=== PATIENT | female | born 1990 | race Caucasian/White ===

== ENCOUNTER 2023-10-10 11:08 | Observation (INO) | payer MEDICARE, SELFPAY ==
[2023-10-09 23:58] VITALS: BP 154/114
[2023-10-10] VITALS (11 sets, daily range): BP systolic 97–126; BP diastolic 58–84; BMI 20.8; BMI 21.4
--- NOTE | 2023-10-10 01:07 | ED.GENMED ---
History of Present Illness
<Thiago Vee PA-C - Last Filed: 10/10/23 15:13>
General
Chief Complaint: Abdominal Pain
Time Seen by Provider: 10/10/23 00:40
Travel History
Have you had any contact with someone who has COVID-19?: No
Do you have any symptoms of coronavirus? Fever > 100 degrees, chills, cough, shortness of breath, sore throat, loss of taste or smell, muscle aches, or headache?: No
History of Present Illness
History of Present Illness:
33-year-old female with history of diverticulitis status post sigmoidectomy and small bowel resection x 2 presents to the emergency department for evaluation of severe lower abdominal pain associated with vomiting and lack of flatus over the past
several hours. She has a history of a small bowel obstruction and states this feels the same. Denies any hematemesis. No fevers or chills.
Underwent sigmoidectomy/SB resection x 2 in mid 2022, subsequent SBO later in 2022.
Past History
<Thiago Vee PA-C - Last Filed: 10/10/23 15:13>
Past History
ED Past Medical History: Psychiatric (Depression, bipolar disorder, panic disorder), Other (Diverticulitis) and Other (Genital herpes)
ED Past Surgical History: None
Social History
Tobacco: Smoker
Alcohol: Occasional
Drug: None
Personal: Single
Living: with family
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
Family History
Family History: Diabetes and Other (Breast cancer)
Review of Systems
<Thiago Vee PA-C - Last Filed: 10/10/23 15:13>
Review of Systems
Allergies reviewed?: Yes
All Other Systems: ROS reviewed and negative except as documented in HPI and ROS
Phy Exam
<Thiago Vee PA-C - Last Filed: 10/10/23 15:13>
Physical Exam
Physical Exam:
GEN: Ill-appearing, visibly in pain
Eyes: PERRLA, EOMs intact, no scleral icterus
HENT: NCAT, oral mucosa moist
Lungs: CTAB, no wheezes, rales, rhonchi, normal chest wall excursion
Cardiac: Mildly tachycardic, regular, no murmurs
Abdomen: S, diffusely tender x 4 quadrants, no rigidity
Neuro: AO x 3
MSK: No gross deformity or ecchymosis.
Skin: No rashes, petechiae. Normal color, no pallor or jaundice.
Psych: Calm, cooperative, proper hygiene
Course
<Thiago Vee PA-C - Last Filed: 10/10/23 15:13>
Orders/Labs/Results
Orders:
Orders
10/10/23 00:51
CT Abd/pel W Iv And Oral Contr Urgent
Comment:
Reason For Exam: lower abd pain, hx of SBO
HYDROmorphone [Dilaudid] 0.5 mg IV NOW STA
Iohexol [Omnipaque] See Protocol PO NOW STA
Test Result ONCE
10/10/23 00:52
Lactated Ringers [Lr] 1,000 ml IV BOLUS
Ondansetron Injectable [Zofran] 4 mg IV NOW STA
10/10/23 01:16
Complete Blood Count/With Diff Urgent
Comprehensive Metabolic Panel Urgent
HCG, Serum Qualitative Screen Urgent
Lactic Acid Urgent
10/10/23 04:38
HYDROmorphone [Dilaudid] 0.5 mg .ROUTE .STK-MED ONE
10/10/23 04:43
HYDROmorphone [Dilaudid] 0.5 mg IV NOW STA
10/10/23 04:44
Ondansetron Injectable [Zofran] 4 mg .ROUTE .STK-MED ONE
10/10/23 04:45
Ondansetron Injectable [Zofran] 4 mg IV NOW STA
10/10/23 Breakfast
NPO
Allow oral meds: Yes
Allow clear liquids: No
NPO with Ice Chips: Yes
10/10/23 06:36
Urinalysis Reflex To Culture Urgent
Date Specimen was Collected: 10/10/23
Time Specimen was Collected: 06:35
Urine Microscopic Reflex Cult Urgent
Urine Culture Urgent
EDGARDO Source: U
Specimen Description:
Date Specimen was Collected: 10/10/23
Time Specimen was Collected: 06:35
10/10/23 08:28
HYDROmorphone [Dilaudid] 0.5 mg .ROUTE .STK-MED ONE
Ondansetron Injectable [Zofran] 4 mg .ROUTE .STK-MED ONE
10/10/23 08:30
Ondansetron Injectable [Zofran] 4 mg IV NOW STA
10/10/23 08:31
HYDROmorphone [Dilaudid] 0.5 mg IV NOW STA
10/10/23 10:58
Admit Patient As Directed
Co-Sign Provider:
Level of Care: Observation services
Assign to:: Medical/Surgical
Physician / Group: [facility]/General surgery
Diagnosis: SBO
Code Status As Directed
Resuscitation Status: Full Code
HYDROmorphone [Dilaudid] 0.5 mg IV Q4HPRN PRN
HYDROmorphone [Dilaudid] 1 mg IV Q4HPRN PRN
Ketorolac [Toradol] 10 mg IV Q6HPRN PRN
Activity As Directed
Activity Level: Out of Bed-Early Mobility
Intake/ Output As Directed
Frequency: Per unit guidelines
Pneumatic Compression Sleeves As Directed
Type: Knee high
Vital Signs As Directed
Frequency: Per unit guidelines
DX Deep Vein Thrombosis Video Routine
10/10/23 11:00
Normosol (Mult Electrolytes) [Normosol-R] 1,000 ml IV 80 mls/hr
10/10/23 12:00
Nicotine [Nicoderm Transdermal] 14 mg TRANSDERM DAILY
10/10/23 12:30
Ondansetron Injectable [Zofran] 4 mg IV Q6HPRN PRN
10/10/23 18:00
Enoxaparin Sodium [Lovenox] 40 mg SC QPM
10/10/23 22:00
Remove Patch [Remove Nicotine Patch] 1 patch REMOVE HS
10/11/23 06:00
Basic Metabolic Panel IN AM
Complete Blood Count/No Diff IN AM
Abnormal Lab Results
10/10/23 10/10/23
01:16 06:36
WBC 11.4 H 10^3/uL
(4.8-10.8)
MCH 32.7 H pg
(27.0-31.0)
Absolute Neuts (auto) 9.7 H 10^3/uL
(1.4-6.5)
Absolute Lymphs (auto) 1.1 L 10^3/uL
(1.2-3.4)
Neutrophils % 84.4 H %
(42.2-75.2)
Lymphocytes % 9.5 L %
(20.5-51.1)
Glucose 118 H mg/dl
(70-99)
Calcium 10.5 H mg/dl
(8.4-10.2)
Urine Ketones 3+ A
(Negative)
Leukocyte Esterase Rfl Trace A
(Negative)
Urine Bacteria (Reflex) Moderate A
(Negative)
10/10/23 01:16
10/10/23 01:16
Vital Signs
Initial and Last Documented VS:
Initial Vital Signs
Temp Pulse Resp BP Pulse Ox
98.1 F 90 20 154/114 98
10/09/23 23:58 10/09/23 23:58 10/09/23 23:58 10/09/23 23:58 10/09/23 23:58
Last Documented Vital Signs
Temp Pulse Resp BP Pulse Ox
97.9 F 58 14 126/84 99
10/10/23 12:41 10/10/23 12:41 10/10/23 12:41 10/10/23 12:41 10/10/23 13:02
<Cee Weber MD - Last Filed: 10/10/23 05:47>
Orders/Labs/Results
Orders:
Orders
10/10/23 00:51
CT Abd/pel W Iv And Oral Contr Urgent
Comment:
Reason For Exam: lower abd pain, hx of SBO
HYDROmorphone [Dilaudid] 0.5 mg IV NOW STA
Iohexol [Omnipaque] See Protocol PO NOW STA
Test Result ONCE
10/10/23 00:52
Lactated Ringers [Lr] 1,000 ml IV BOLUS
Ondansetron Injectable [Zofran] 4 mg IV NOW STA
10/10/23 01:16
Complete Blood Count/With Diff Urgent
Comprehensive Metabolic Panel Urgent
HCG, Serum Qualitative Screen Urgent
Lactic Acid Urgent
10/10/23 04:38
HYDROmorphone [Dilaudid] 0.5 mg .ROUTE .STK-MED ONE
10/10/23 04:43
HYDROmorphone [Dilaudid] 0.5 mg IV NOW STA
10/10/23 04:44
Ondansetron Injectable [Zofran] 4 mg .ROUTE .STK-MED ONE
10/10/23 04:45
Ondansetron Injectable [Zofran] 4 mg IV NOW STA
10/10/23 Breakfast
NPO
Allow oral meds: Yes
Allow clear liquids: No
NPO with Ice Chips: Yes
10/10/23 06:36
Urinalysis Reflex To Culture Urgent
Date Specimen was Collected: 10/10/23
Time Specimen was Collected: 06:35
Urine Microscopic Reflex Cult Urgent
Urine Culture Urgent
EDGARDO Source: U
Specimen Description:
Date Specimen was Collected: 10/10/23
Time Specimen was Collected: 06:35
10/10/23 08:28
HYDROmorphone [Dilaudid] 0.5 mg .ROUTE .STK-MED ONE
Ondansetron Injectable [Zofran] 4 mg .ROUTE .STK-MED ONE
10/10/23 08:30
Ondansetron Injectable [Zofran] 4 mg IV NOW STA
10/10/23 08:31
HYDROmorphone [Dilaudid] 0.5 mg IV NOW STA
10/10/23 10:58
Admit Patient As Directed
Co-Sign Provider:
Level of Care: Observation services
Assign to:: Medical/Surgical
Physician / Group: [facility]/General surgery
Diagnosis: SBO
Code Status As Directed
Resuscitation Status: Full Code
HYDROmorphone [Dilaudid] 0.5 mg IV Q4HPRN PRN
HYDROmorphone [Dilaudid] 1 mg IV Q4HPRN PRN
Ketorolac [Toradol] 10 mg IV Q6HPRN PRN
Activity As Directed
Activity Level: Out of Bed-Early Mobility
Intake/ Output As Directed
Frequency: Per unit guidelines
Pneumatic Compression Sleeves As Directed
Type: Knee high
Vital Signs As Directed
Frequency: Per unit guidelines
DX Deep Vein Thrombosis Video Routine
10/10/23 11:00
Normosol (Mult Electrolytes) [Normosol-R] 1,000 ml IV 80 mls/hr
10/10/23 12:00
Nicotine [Nicoderm Transdermal] 14 mg TRANSDERM DAILY
10/10/23 12:30
Ondansetron Injectable [Zofran] 4 mg IV Q6HPRN PRN
10/10/23 18:00
Enoxaparin Sodium [Lovenox] 40 mg SC QPM
10/10/23 22:00
Remove Patch [Remove Nicotine Patch] 1 patch REMOVE HS
10/11/23 06:00
Basic Metabolic Panel IN AM
Complete Blood Count/No Diff IN AM
Abnormal Lab Results
10/10/23 10/10/23
01:16 06:36
WBC 11.4 H 10^3/uL
(4.8-10.8)
MCH 32.7 H pg
(27.0-31.0)
Absolute Neuts (auto) 9.7 H 10^3/uL
(1.4-6.5)
Absolute Lymphs (auto) 1.1 L 10^3/uL
(1.2-3.4)
Neutrophils % 84.4 H %
(42.2-75.2)
Lymphocytes % 9.5 L %
(20.5-51.1)
Glucose 118 H mg/dl
(70-99)
Calcium 10.5 H mg/dl
(8.4-10.2)
Urine Ketones 3+ A
(Negative)
Leukocyte Esterase Rfl Trace A
(Negative)
Urine Bacteria (Reflex) Moderate A
(Negative)
10/10/23 01:16
10/10/23 01:16
Vital Signs
Initial and Last Documented VS:
Initial Vital Signs
Temp Pulse Resp BP Pulse Ox
98.1 F 90 20 154/114 98
10/09/23 23:58 10/09/23 23:58 10/09/23 23:58 10/09/23 23:58 10/09/23 23:58
Last Documented Vital Signs
Temp Pulse Resp BP Pulse Ox
97.9 F 58 14 126/84 99
10/10/23 12:41 10/10/23 12:41 10/10/23 12:41 10/10/23 12:41 10/10/23 13:02
<Thiago Vee PA-C - Last Filed: 10/10/23 15:13>
MDM/Problems Addressed
MDM/Problems Addressed:
33 yo female presenting w/ abd pain, vomiting and lack of flatus, hx of SBO shortly after sigmoidectomy/SB resection. Abdomen is soft, non rigid however pt appears markedly uncomfortable. Cannot discount lack of flatus. Will attempt to obtain CT w/
PO and IV due to small habitus. Medicate w/ opioids and anti emetics. Will sign out to Dr Weber pending imaging results.
<Thiago Vee PA-C - Last Filed: 10/10/23 15:13>
*Critical Care Note
Total Time (30-74mins, 75-104mins- exclusive of procedures): Not Applicable
ED Attending Note
<Thiago Vee PA-C - Last Filed: 10/10/23 15:13>
-
Portions of this chart may have been created with voice recognition software.� Occasional wrong word or��sound alike� substitutions may have occurred due to the inherent limitations of voice recognition software.
<Cee Weber MD - Last Filed: 10/10/23 05:47>
ED Attending Note
Patient seen and examined by attending physician: Yes
I performed the substantive portion of visit, reviewed & personally made and approve the management plan that is documented in note by myself or BRYAN.: Yes
ED Attending Note:
33-year-old female presents to the emergency department complaints of abdominal pain that started earlier today, lack of flatus, chills, and vomiting. On exam here, patient has received pain medication and feels better, abdomen slightly distended,
mild tenderness to palpation without rebound or guarding. CAT scan consistent with SBO. [place] text sent to Dr. IBETH FREIRE regarding need for admission, patient updated. Patient is not actively vomiting and would prefer to defer NG tube at this time.
Discharge Plan
Departure
Patient Disposition: Admit
Date of Disposition: 10/10/23
Time of Disposition: 05:47
Admit to: Med/Surg
Admit to doctor: jamar
Presentation/result/management discussed w/ accepting MD/DO: Hospitalist
Discharge Problem:
SBO (small bowel obstruction)
Interventions
Interventions:
*Risk Screen - Suicide Last Done: 10/09/23 23:58
*General Assessment Last Done: 10/09/23 23:58
*Neglect/Abuse Screening Last Done: 10/09/23 23:58
ED- Fall Risk Assessment Last Done: 10/10/23 01:25
*ED COVID-19 Vaccine History Last Done: 10/10/23 03:38
*Nursing Disposition Last Done: 10/10/23 12:23
GR-Hfuuqt-Ltgdmavejv Assessment Last Done: 10/10/23 01:25
Discharge Date and Time
Discharge Date/Time: 10/10/23 12:24
[2023-10-10] MEDS: DILAUDID 0.5 MG IV ×4 (01:22→15:03)
[2023-10-10] MEDS: ZOFRAN 4 MG IV ×4 (01:23→15:02)
[2023-10-10] MEDS: LR 1000 IV (01:30)
[2023-10-10] MEDS: OMNIPAQUE 50 ML PO (01:30)
[2023-10-10 01:31] LABS: % Basophils 0.3 % (0-2); % Eosinophils 0.7 % (0-6); % Immature Granulocytes 0.4 % (0-0.5); % Lymphocytes 9.5 % (20.5-51.1); % Monocytes 4.7 % (1.7-9.3); % Neutrophils 84.4 % (42.2-75.2); Absolute Eosinophils 0.1 10^3/uL (0-0.7); Absolute Lymphocytes 1.1 10^3/uL (1.2-3.4); Absolute Monocytes 0.5 10^3/uL (0.1-0.6); Absolute Neutrophils 9.7 10^3/uL (1.4-6.5); Hematocrit 40.7 % (37.0-47.0); Hemoglobin 14.7 g/dL (12.0-16.0); Mean Corp Hgb Conc. 36.1 g/dL (33.0-37.0); Mean Corpuscular Hgb 32.7 pg (27.0-31.0); Mean Corpuscular Volume 90.4 fL (81.0-99.0); Nucleated Red Blood Cells % 0 %; Platelet Count 227 10^3/uL (130-400); Red Cell Dist. Width 11.7 % (11.5-14.5); White Blood Cell Count 11.4 10^3/uL (4.8-10.8)
[2023-10-10 01:44] LABS: HCG, Serum Qualitative Screen Negative
[2023-10-10 01:48] LABS: Lactic Acid 1.4 mmol/L (0.7-2.0)
[2023-10-10 01:51] LABS: ALT (SGPT) 20 U/L (0-35); AST (SGOT) 22 U/L (14-36); Albumin 4.7 g/dl (3.5-5.0); Alkaline Phosphatase 79 U/L (38-126); Blood Urea Nitrogen 15 mg/dl (7-17); Calcium 10.5 mg/dl (8.4-10.2); Carbon Dioxide 24 mmol/L (22-30); Chloride 101 mmol/L (98-107); Estimated Creatinine Clearance 87 ml/min; Glucose 118 mg/dl (70-99); Potassium 3.8 mmol/L (3.5-5.1); Sodium 137 mmol/L (135-145); Total Protein 7.7 g/dl (6.3-8.2); eGFR > 60.00
[2023-10-10 06:49] LABS: Urine Albumin Trace (Neg - Trace); Urine Bilirubin Negative (Negative); Urine Character Clear (Clear); Urine Color Yellow; Urine Glucose Negative (Negative); Urine Ketone 3+ (Negative); Urine Leukocyte Trace (Negative); Urine Nitrite Negative (Negative); Urine Occult Blood Negative (Negative); Urine Urobilinogen Negative (Neg - 1+)
[2023-10-10 06:54] LABS: Urine Squamous Cell >30 /LPF (Few)
[2023-10-10 06:55] LABS: Urine Bacteria Moderate (Negative)
[2023-10-10 06:56] LABS: Urine Red Blood Cell None Seen /HPF (0-2)
--- NOTE | 2023-10-10 11:01 | HPS.HSE ---
Addendum entered and electronically signed by Skyler Fitch MD 10/10/23 12:09:
Patient seen and examined. Agree with assessment plan as documented below.
Patient is a 33 yo F with a PMH of ovarian cysts, bipolar disorder, and complicated diverticulitis s/p ex lap with sigmoidectomy and primary anastomosis and SBR x [address] Romero in 11/2022. She presents with 24 to 40 hours of worsening abdominal
pain and distention. Nausea, but no vomiting. No flatus or BM over the past 24 hours. She continues to have some lower abdominal discomfort. No fevers. Of note, she had a similar though less severe presentation back in April 2023, during
which time she was discharged prior to admission.
Gen: NAD
Abd: soft, tender to palpation diffusely, mild/moderate distension, non-peritoneal, prior incision well healed
Labs and imaging reviewed.
Patient is a 33 yo F p/w SBO likely secondary to adhesions possibly related to prior anastomosis
Clinically stable without radiographic signs of bowel ischemia or free air. Recommend trial of medical management with NPO and IV fluids. Repeat abdominal x-ray in the AM to assess contrast progression (hold on NGT for now given lack of nausea and
to allow for progress). Discussed the potential need/role either during this admission or as an outpatient for surgical exploration, NUHA, and possible revision of anastomosis. All questions answered.
-- NPO, IVF, hold on NGT given lack of nausea and to allow for contrast progression
-- Repeat abdominal X-ray in AM
Original Note:
Family Physician
-
Family Physician: INTERVIEWE UNKNOWN - PT NOT
Chief Complaint
-
Abdominal pain
History of Present Illness
Ms Forbes is a 33 yo female with history of ovarian cyst and complicated sigmoid diverticulitis requiring surgical intervention in November of 2022 with ex lap, sigmoidectomy and SBR x2 with Dr. Hidalgo. Since that time, she was admitted in April
with SBO and has noted intermittent episodes of similar symptoms at home which resolve with bowel rest. Overnight, she presented through the ED with similar symptoms to her prior episodes but this time pain was much more severe. She had nausea and
vomiting with no passage of flatus or stool over the past 24 hours. She notes that symptoms have improved since presentation but pain still present to her lower abdomen.
Medical History
Past Medical History
Past Medical History: Reports Psychiatric (bipolar) and Other (Complicated diverticulitis, herpes)
Past Surgical History: Reports Bowel Resection (11/2022 ex lap with sigmoidectomy and sbr x2 (adhesions)(pellini))
Social History
Tobacco: Smoker
Alcohol: Occasional
Family History
Family History: Not pertinent
Allergies / Home Medications
Allergies reflects when Allergies were last updated in [facility].
Home Medications with original date entered in [facility]
Allergy/Medication List:
Patient Allergies
Allergy/AdvReac Type Severity Reaction Status Date / Time
sulfamethoxazole Allergy Rash/stiff Verified 07/18/23 10:22
[From Bactrim] spine
trimethoprim [From Bactrim] Allergy Rash Verified 07/18/23 10:22
Medication Instructions Recorded Confirmed Type
No Meds [No Current Medications] 04/06/23 10/10/23 History
Review of Systems
-
History Source: Patient
A 12 point ROS was completed and negative except as noted: Yes
Physical Exam
Vital Signs
Vital Signs
Temp Pulse Resp BP Pulse Ox
98.2 F 62 16 108/71 98
10/10/23 08:20 10/10/23 10:25 10/10/23 10:25 10/10/23 10:25 10/10/23 10:25
Physical Exam
General: Well Developed, Conversant and Other (tearful)
HEENT: Moist mucous membranes
Respiratory: Non Labored Respirations
GI: Soft, Tender (generalized) and Distended
Skin: Warm and Dry
Neuro: Awake, Alert and AO x 3
Psych: Calm
Laboratory Results
-
10/10/23 01:16
10/10/23 01:16
Laboratory Results
Lactic Acid 1.4 mmol/L (0.7-2.0) 10/10/23 01:16
Total Bilirubin 1.0 mg/dl (0.2-1.3) 10/10/23 01:16
AST 22 U/L (14-36) 10/10/23 01:16
ALT 20 U/L (0-35) 10/10/23 01:16
Alkaline Phosphatase 79 U/L (38-126) 10/10/23 01:16
Data Reviewed
-
CT Scan: Image Personally Visualized and interpreted, Report Reviewed by me, Discussed with Physician and Discussed with Patient
Lab Data: Labs Reviewed by me, Discussed with Physician and Discussed with Patient
Old Records: Reviewed
Impression/Plan
-
IMPRESSION:
33 yo female with history of ovarian cyst and complicated sigmoid diverticulitis requiring surgical intervention in November of 2022 with ex lap, sigmoidectomy and SBR x2 with Dr. Hidalgo. Presenting with abd pain/n/v. Prior SBO in April with
intermittent symptoms at home resolving with bowel rest. CT imaging reviewed with dilation to level of small bowel anastomosis in the lower mid abd. Oral contrast in the stomach but not progressed much beyond. No pneumoperitoneum or evidence of
bowel threat present. Known ovarian cyst present (has appliance parts counter clerk f/u planned). Currently feeling a little better although pain persists.
PLAN:
Hold off on NGT unless develops worsening nausea or vomiting
Plan f/u XR in Am to follow passage of contrast
Keep NPO
IVF while NPO
Analgesics/antiemetics prn
VTE ppx with lovenox/SCD's
[2023-10-10] MEDS: DILAUDID 1 MG IV ×2 (11:14→17:47)
[2023-10-10] MEDS: NORMOSOL-R 1000 IV (13:09)
--- NOTE | 2023-10-10 15:06 | PTCARENOTE ---
Pt rang call pressley for being nauseous and wanting pain medication. Pt recvd Stephanie and Usman.
[2023-10-10] MEDS: TORADOL 10 MG IV (20:35)
[2023-10-10] MEDS: BENADRYL 25 MG IV (21:05)
[2023-10-11] MEDS: NORMOSOL-R 1000 IV (04:34)
[2023-10-11] MEDS: ZOFRAN 4 MG IV (05:20)
--- NOTE | 2023-10-11 05:26 | PTCARENOTE ---
Earlier in the shift (2029), pt had 1 episode of a greenish color vomit (about 100cc). Pt was not due yet for Zofran. SPECIAL EDUCATION SUPERVISOR (Alessandro Jackson) notified. Order of Benadryl 25mg IV given. Pt felt much relief and no more vomiting episodes occurred since
then. No complaint of nausea till this time, but no vomiting. Zofran given as per order. No BMs through the night, but pt reports flatus. Will continue to monitor the pt.
[2023-10-11 07:25] VITALS: BP 118/68
[2023-10-11] MEDS: BENADRYL 25 MG IV ×3 (08:13→22:46)
[2023-10-11 08:25] LABS: Hematocrit 36.9 % (37.0-47.0); Hemoglobin 12.9 g/dL (12.0-16.0); Mean Corpuscular Hgb 32.6 pg (27.0-31.0); Mean Corpuscular Volume 93.2 fL (81.0-99.0); Mean Platelet Volume 10.6 fL (7.4-10.4); Platelet Count 187 10^3/uL (130-400); Red Blood Cell Count 3.96 10^6/uL (4.20-5.40); Red Cell Dist. Width 11.6 % (11.5-14.5); White Blood Cell Count 7.1 10^3/uL (4.8-10.8)
[2023-10-11 08:51] LABS: Blood Urea Nitrogen 13 mg/dl (7-17); Calcium 8.6 mg/dl (8.4-10.2); Carbon Dioxide 22 mmol/L (22-30); Chloride 104 mmol/L (98-107); Estimated Creatinine Clearance 83 ml/min; Glucose 64 mg/dl (70-99); Potassium 3.7 mmol/L (3.5-5.1); Sodium 133 mmol/L (135-145); eGFR > 60.00
[2023-10-11] MEDS: DILAUDID 1 MG IV ×3 (10:06→22:46)
[2023-10-11] MEDS: D5/0.45%NSS with KCL 20 MEQ 1000 IV ×2 (10:49→22:54)
--- NOTE | 2023-10-11 12:09 | CM ---
Patient seen bedside with , initial assessment completed. Patient reports she lives with her spouse, Arun, in a multiple story home, denies DME, VN, or SNF. Patient confirms pharmacy [facility] in [place]. Patient does not have a PCP but is
interested in a list of accepting practices with her insurance. Observation status explained, refused to sign, placed in chart. Patient inquiring about being switched to inpatient status, CM will send TT to doctor. CM will continue to follow for
discharge planning needs.
Plan; home no needs anticipated.
--- NOTE | 2023-10-11 12:29 | W.PN.GS2 ---
Today's Communication / Plan
-
Nonoperative management of small bowel obstruction.
Assessment / Plan
-
This is a 33-year-old female with a history of ovarian cyst, bipolar disorder, complicated diverticulitis status post exploratory laparotomy with sigmoidectomy/FACTORY HAND and small bowel resection times 2 (12/22). She presents with 1 to 2 days of worsening
abdominal pain distention, nausea and vomiting as well as obstipation. CT scan concerning for recurrent small bowel obstruction. Patient refusing NG tube.
AM x-ray shows contrast into the proximal colon and no significant dilation of her small bowel (no air-fluid levels or gastric bubble noted).
She has return of bowel function albeit minimal.
Continue n.p.o., IV fluids.
Trend electrolytes, mag and Phos, replete as needed.
Out of bed and ambulate.
Will continue nonoperative management for now, potential repeat study in the next few days depending on her progress.
General surgery will continue to follow
Time Spent
Total Time Spent with Patient (in minutes): 25
Subjective Data
-
Date of Service: October 11, 2023
Interval Events:
No acute events overnight. Emesis x 1. Slept okay. Pain Controlled but not improved. + some flatus.
Objective Data
-
Intake and Output
10/10/23 10/11/23 10/12/23
06:59 06:59 06:59
Intake Total 1440 / 1440
Output Total 100 / 100
Balance 1340 / 1340
Intake:
Oral fluids 480 / 480
IV fluids (Total) 960 / 960
Output:
Emesis 100 / 100
Other:
Number of approximated MODERATE 2
amounts of urine
Vital Signs
Temp Pulse Resp BP Pulse Ox
98.3 F 73 18 118/68 97
10/11/23 07:25 10/11/23 07:25 10/11/23 07:25 10/11/23 07:25 10/11/23 07:25
Lab Results
10/11/23 07:48
10/11/23 07:48
Calcium 8.6 mg/dl (8.4-10.2) D 10/11/23 07:48
Total Bilirubin 1.0 mg/dl (0.2-1.3) 10/10/23 01:16
AST 22 U/L (14-36) 10/10/23 01:16
ALT 20 U/L (0-35) 10/10/23 01:16
Alkaline Phosphatase 79 U/L (38-126) 10/10/23 01:16
Total Protein 7.7 g/dl (6.3-8.2) 10/10/23 01:16
Albumin 4.7 g/dl (3.5-5.0) 10/10/23 01:16
Physical Exam
-
GENERAL/NEURO: Awake, Alert, no distress
CHEST: Unlabored breathing on RA
ABDOMEN: Soft, Non-Tender, Non-Distended
[2023-10-11 15:30] VITALS: BP 136/71
[2023-10-11 21:08] VITALS: BP 120/74
[2023-10-11 23:35] VITALS: BP 121/69
[2023-10-12 07:55] VITALS: BP 132/69
--- NOTE | 2023-10-12 09:27 | W.PN.GS2 ---
Today's Communication / Plan
-
-- Clears, ADAT to LRD
Assessment / Plan
-
This is a 33-year-old female with a history of ovarian cyst, bipolar disorder, complicated diverticulitis status post exploratory laparotomy with sigmoidectomy/REFRIGERATOR REPAIRMAN and small bowel resection times 2 (12/22). She presents with 1 to 2 days of worsening
abdominal pain distention, nausea and vomiting as well as obstipation. CT scan concerning for recurrent small bowel obstruction.
Clinical and radiographic improvement.
-- Clears, ADAT to LRD
-- Pain control: Tylenol and Toradol PRN, minimize narcotics
-- OOB/ambulate
-- DC pending diet tolerance and BM
-- Outpatient follow-up with Dr. Hidalgo
Subjective Data
-
Date of Service: October 12, 2023
No complaints. Pain well-controlled. No nausea or vomiting. Passing flatus, no BM.
Objective Data
-
Intake and Output
10/11/23 10/12/23 10/13/23
06:59 06:59 06:59
Intake Total 1440 / 1440 1440 / 1440
Output Total 100 / 100
Balance 1340 / 1340 1440 / 1440
Intake:
Oral fluids 480 / 480 480 / 480
IV fluids (Total) 960 / 960 960 / 960
Output:
Emesis 100 / 100
Other:
Number of approximated MODERATE 2 3
amounts of urine
Vital Signs
Temp Pulse Resp BP Pulse Ox
98.1 F 57 20 121/69 96
10/11/23 23:35 10/11/23 23:35 10/11/23 23:35 10/11/23 23:35 10/11/23 23:35
Lab Results
10/11/23 07:48
10/11/23 07:48
Calcium 8.6 mg/dl (8.4-10.2) D 10/11/23 07:48
Total Bilirubin 1.0 mg/dl (0.2-1.3) 10/10/23 01:16
AST 22 U/L (14-36) 10/10/23 01:16
ALT 20 U/L (0-35) 10/10/23 01:16
Alkaline Phosphatase 79 U/L (38-126) 10/10/23 01:16
Total Protein 7.7 g/dl (6.3-8.2) 10/10/23 01:16
Albumin 4.7 g/dl (3.5-5.0) 10/10/23 01:16
Physical Exam
-
Gen: NAD
Abd: soft, NT/ND, non-peritoneal, incision well healed
[2023-10-12] MEDS: TORADOL 10 MG IV (11:10)
[2023-10-12] MEDS: D5/0.45%NSS with KCL 20 MEQ 1000 IV (12:31)
--- NOTE | 2023-10-12 13:36 | W.PN.SURGUPD ---
Surgical Update
Surgical Update
pt seen in follow up
prem liquids with mild cramps but overall feeling better
+flatus, no BM yet
abd soft, mild TTP no R/R/G
discussed with pt, her preference is to be discharged with diet advancement at home
given improvement and follow up Xray showing contrast into colon yesterday advised okay for dc but dietary counseling provided
would go slow from full liquids with supplement to low fiber over the next few days as tolerated
scheduled to see me next week for office follow up as well
plan will be for outpatient SBFT study in 4-6 weeks
--- NOTE | 2023-10-12 13:39 | W.DS.TRANS ---
Addendum entered and electronically signed by [place] Francis 10/15/23 14:57:
#[id number]
Original Note:
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
-
Discharge Instructions:
Discharge Diagnosis/Procedures Partial small bowel obstruction
Diet Low Fiber
Additional Diets start with full liquid diet for 1-2 days then
begin to resume low fiber foods. smaller meals
and supplement with protein shakes
Activity No restrictions
Driving Restrictions As prior to admission
Bathing Restrictions None
Wound Care NA
Instructions:
Stand-Alone Forms:
Changes to Home Medications: No
Discharge Medications:
DC Medications w/original date entered in [facility]
multivitamin 1 tab PO DAILY Supplement 10/10/23
Home Medication Changes
Pending Results: No
--- NOTE | 2023-10-12 13:55 | CM ---
Patient seen bedside, provided list of PCP's who accept patients insurance. CM will continue to follow for discharge planning needs.
Plan; home no needs anticipated.
[2023-10-12 13:57] VITALS: BP 148/83
== END 2023-10-12 14:47 | disposition home or self-care (01) ==
LOC: 4 EAST ACU 11:08
PROVIDERS: Physician Assistant; Registered Nurse; ADMITTING PHYSICIAN Surgery; EMERGENCY PHYSICIAN Emergency Medicine
DX: K56.51 Intestinal adhesions [bands], with partial obstruction (principal); R10.9 Unspecified abdominal pain; R11.2 Nausea with vomiting, unspecified; F31.9 Bipolar disorder, unspecified; N83.202 Unspecified ovarian cyst, left side; F41.0 Panic disorder [episodic paroxysmal anxiety]; F17.210 Nicotine dependence, cigarettes, uncomplicated; Z83.3 Family history of diabetes mellitus; Z80.3 Family history of malignant neoplasm of breast; Z88.1 Allergy status to other antibiotic agents; Z88.2 Allergy status to sulfonamides; Z87.19 Personal history of other diseases of the digestive system; Z90.49 Acquired absence of other specified parts of digestive tract
CPT/HCPCS: 74018; 74177; 80048; 80053; 81003; 81015; 83605; 84703; 85025; 85027; 87086; 96374; 96375; 96376; 99285; 99406; G0378; Q9967

== ENCOUNTER 2023-10-15 17:45 | Inpatient (IN) | payer MEDICARE, SELFPAY ==
[2023-10-15 14:42] VITALS: BP 130/87
[2023-10-15 15:33] LABS: % Basophils 0.3 % (0-2); % Eosinophils 1.2 % (0-6); % Immature Granulocytes 0.2 % (0-0.5); % Lymphocytes 25.8 % (20.5-51.1); % Monocytes 9.6 % (1.7-9.3); % Neutrophils 62.9 % (42.2-75.2); Absolute Eosinophils 0.1 10^3/uL (0-0.7); Absolute Lymphocytes 1.5 10^3/uL (1.2-3.4); Absolute Monocytes 0.6 10^3/uL (0.1-0.6); Absolute Neutrophils 3.7 10^3/uL (1.4-6.5); Hematocrit 38.8 % (37.0-47.0); Hemoglobin 13.9 g/dL (12.0-16.0); Mean Corp Hgb Conc. 35.8 g/dL (33.0-37.0); Mean Corpuscular Hgb 32.6 pg (27.0-31.0); Mean Corpuscular Volume 91.1 fL (81.0-99.0); Mean Platelet Volume 9.9 fL (7.4-10.4); Nucleated Red Blood Cells % 0 %; Platelet Count 229 10^3/uL (130-400); Red Blood Cell Count 4.26 10^6/uL (4.20-5.40); Red Cell Dist. Width 11.7 % (11.5-14.5); White Blood Cell Count 5.9 10^3/uL (4.8-10.8)
[2023-10-15 15:46] LABS: HCG, Serum Qualitative Screen Negative
[2023-10-15 15:51] LABS: ALT (SGPT) 15 U/L (0-35); AST (SGOT) 21 U/L (14-36); Albumin 4.5 g/dl (3.5-5.0); Alkaline Phosphatase 64 U/L (38-126); Blood Urea Nitrogen 10 mg/dl (7-17); Calcium 9.8 mg/dl (8.4-10.2); Carbon Dioxide 24 mmol/L (22-30); Chloride 101 mmol/L (98-107); Glucose 107 mg/dl (70-99); Potassium 4.1 mmol/L (3.5-5.1); Sodium 135 mmol/L (135-145); Total Bilirubin 0.9 mg/dl (0.2-1.3); Total Protein 7.7 g/dl (6.3-8.2); eGFR > 60.00
--- NOTE | 2023-10-15 16:08 | ED.GENMED ---
History of Present Illness
General
Chief Complaint: Abdominal Pain
Source: patient and physician
Time Seen by Provider: 10/15/23 16:07
Travel History
Have you had any contact with someone who has COVID-19?: No
Do you have any symptoms of coronavirus? Fever > 100 degrees, chills, cough, shortness of breath, sore throat, loss of taste or smell, muscle aches, or headache?: No
History of Present Illness
History of Present Illness:
33-year-old female with past medical history of diverticulitis status post colon resection, history of multiple bowel obstructions, presenting back to the emergency department for evaluation by general surgery with concern for recurrent small bowel
obstruction. Patient was recently seen at this facility and discharged earlier this week, felt better and went home but symptoms returned and following outpatient imaging showing recurrence of bowel obstruction was recommended to come back to the
emergency department for admission. Patient states symptoms at present are tolerable and she states her pain is currently controlled. She denies any nausea presently as well. Surgical team is in the emergency department upon patient's arrival to
the ER and requesting admission to their service.
Past History
Past History
ED Past Medical History: Psychiatric (Depression, bipolar disorder, panic disorder), Other (Diverticulitis) and Other (Genital herpes)
ED Past Surgical History: Bowel resection
Social History
Tobacco: Smoker
Alcohol: Occasional
Drug: None
Personal: Single
Living: with family
Family History
Family History: Diabetes and Other (Breast cancer)
Review of Systems
Review of Systems
All Other Systems: ROS reviewed and negative except as documented in HPI and ROS
Phy Exam
Physical Exam
Physical Exam:
GENERAL: Alert , in no apparent distress
EYE: clear conjunctiva b/l
HEAD: NCAT
ENT: o/p clr, mmm.
ABDOMEN: Firm and somewhat distended, without focal tenderness, no r/g, no cvat
NEUROLOGICAL: Alert and oriented
SKIN: Warm and dry, skin intact.
MUSCULOSKELETAL: No edema, well perfused.
PSYCH: Normal and appropriate interaction.
Scores
Heart Failure Risk
Heart Failure Risk Score: Not Applicable
Heart Score for Chest Pain Patients
STEMI patient?: Not applicable
Withdrawal Assessment of Alcohol
Withdrawal Assessment Completed?: Not applicable
Course
Orders/Labs/Results
Orders:
Orders
10/15/23 Dinner
Clear Liquid
At Your Request: Full Participation
Does patient need a safe tray?: No
10/15/23 15:18
CR Obstruct Series W/pa Chest Urgent
Comment: recent partial SBO
Reason For Exam: abdominal pain
10/15/23 15:20
Test Result ONCE
10/15/23 15:24
CMP [Comprehensive Metabolic Panel] Urgent
Complete Blood Count/With Diff Urgent
HCG, Serum Qualitative Screen Urgent
10/15/23 17:23
Admit/Transfer Patient As Directed
Co-Sign Provider:
Level of Care: Inpatient admission
Assign to:: Medical/Surgical
Physician / Group: General surgery/Pellini
Diagnosis: SBO
Reason for Hospitalization: SBO
Expected length of stay greater than two midnights?: Yes
ELOS- Estimated Length of Stay in days: 4
I certify the patient meets the requirements for IP care: Yes
Code Status As Directed
Resuscitation Status: Full Code
10/15/23 17:27
Bisacodyl [Dulcolax] 10 mg RECTAL NOW STA
10/15/23 18:18
Acetaminophen [Tylenol] 650 mg PO Q4HPRN PRN
Dextrose 5%/Lactringers 1000ML [D5lr] 1,000 ml IV 80 mls/hr
Enoxaparin Sodium [Lovenox] 40 mg SC QPM
HYDROmorphone [Dilaudid] 0.5 mg IV Q4HPRN PRN
Ketorolac [Toradol] 10 mg IV Q6HPRN PRN
Ondansetron Injectable [Zofran] 4 mg IV Q6HPRN PRN
10/15/23 18:18
Activity As Directed
Activity Level: Out of Bed-Early Mobility
Intake/ Output As Directed
Frequency: Per unit guidelines
Pneumatic Compression Sleeves As Directed
Type: Knee high
Vital Signs As Directed
Frequency: Per unit guidelines
DX Deep Vein Thrombosis Video Routine
10/16/23 06:00
Basic Metabolic Panel IN AM
Complete Blood Count/No Diff IN AM
10/16/23 08:00
Famotidine [Pepcid] 20 mg IV DAILY
Polyethylene Glycol Powder [Miralax] 17 grams PO DAILY
Abnormal Lab Results
10/15/23
15:24
MCH 32.6 H pg
(27.0-31.0)
Monocytes % 9.6 H %
(1.7-9.3)
Glucose 107 H mg/dl
(70-99)
10/15/23 15:24
10/15/23 15:24
Vital Signs
Initial and Last Documented VS:
Initial Vital Signs
Temp Pulse Resp BP Pulse Ox
99.1 F 105 18 130/87 95
10/15/23 14:42 10/15/23 14:42 10/15/23 14:42 10/15/23 14:42 10/15/23 14:42
Last Documented Vital Signs
Temp Pulse Resp BP Pulse Ox
99.1 F 63 18 124/76 97
10/15/23 14:42 10/15/23 18:22 10/15/23 18:22 10/15/23 18:22 10/15/23 18:22
MDM/Problems Addressed
Differential Diagnosis Includes:
Recurrent small bowel obstruction, colitis, diverticulitis
MDM/Problems Addressed:
33-year-old female presenting to the emergency department request of general surgery to be admitted for continued bowel obstruction/recurring bowel obstruction. Patient is declining anything for symptoms at this time. General surgery is at bedside
requesting admission to their service. Patient is otherwise resting comfortably at this time.
*Radiology
Radiology exam reviewed: radiology read reviewed
*Pulse Oximetry
Patient hypoxic: no
*Critical Care Note
Total Time (30-74mins, 75-104mins- exclusive of procedures): Not Applicable
ED Attending Note
-
Portions of this chart may have been created with voice recognition software.� Occasional wrong word or��sound alike� substitutions may have occurred due to the inherent limitations of voice recognition software.
Discharge Plan
Departure
Patient Disposition: Admit
Date of Disposition: 10/15/23
Time of Disposition: 16:08
Presentation/result/management discussed w/ accepting MD/DO: Rocky
Discharge Problem:
SBO (small bowel obstruction)
Interventions
Interventions:
*Risk Screen - Suicide Last Done: 10/15/23 16:48
*Neglect/Abuse Screening Last Done: 10/15/23 16:48
*ED COVID-19 Vaccine History Last Done: 10/15/23 14:42
*Nursing Disposition Last Done: 10/15/23 18:55
WG-Ccdncd-Vbwctzvksz Assessment Last Done: 10/15/23 16:48
Discharge Date and Time
Discharge Date/Time: 10/15/23 18:56
[2023-10-15 16:48] VITALS: BMI 20.4
--- NOTE | 2023-10-15 16:56 | HPS.HSE ---
Addendum entered and electronically signed by Ciaran Hidalgo MD 10/15/23 18:01:
Patient seen and examined independently of nurse practitioner. Agree with documented history and physical which is consistent
Current examination and evaluation.
HPI: 33-year-old female well-known to myself status post ex lap, sigmoidectomy, small bowel resection x 2 due to diverticulitis complicated by intra-abdominal abscess with resultant small bowel obstruction. Initial postoperative recovery
unremarkable. In April she had a low-grade partial small bowel obstruction which promptly resolved with overnight hydration and bowel rest. She had been doing well since then until this past week when she developed obstructive symptoms again
which was confirmed by CT imaging. Follow-up abdominal x-ray showed contrast progression into the colon and her symptoms improved to the point that she was requesting discharge and there was enough signs of GI recovery to progress with diet at
home. Unfortunately since going home patient has had difficulty advancing past liquid diet as when she had noodles and shakes yesterday her abdominal pain, cramps and bloating returned. Her bowel movements have been limited since discharge only 1
stool yesterday. She took MiraLAX daily for the last 2 days. This time she is not having any nausea or vomiting. Her abdominal bloating is a bit less as well as the cramps.
Afebrile, vital signs stable
NAD AAOx3
ABD: Softly distended with some tympany on percussion. Mild tenderness but no rebound rigidity or guarding or localizing pain.
Laboratory testing reviewed and unremarkable.
Obstruction series showing contrast progression in the colon but still predominantly remains within transverse. Few air-fluid levels and mildly prominent small bowel suggestive of residual partial small bowel obstruction.
Assessment/plan: 33-year-old female with persistent partial small bowel obstruction likely at more proximal small bowel anastomosis. Does not necessarily appear high-grade but has been unable to advance past liquid diet at home.
Admit
IV fluid hydration
Okay for clear liquids
Will continue with MiraLAX and give Dulcolax suppository in an effort to help clear contrast opacifying colon over the weekend.
Next step being small bowel follow-through series on Wednesday to evaluate transit time.
Original Note:
Family Physician
-
Family Physician: * NONE
Chief Complaint
-
Nausea/abdominal pain
History of Present Illness
This is a 33 yo female with a pmh of ovarian cysts, bipolar disorder and complicated diverticulitis status post ex lap with sigmoidectomy and primary anastomosis with SBR x2 in November of [address] Hidalgo who presented in April with a small
bowel obstruction which resolved with bowel rest and supportive measures and again for the same early this week on 10/09. She again had improvement in symptoms with bowel rest with follow up XR imaging showing passage of PO contrast into the colon.
She was discharged to home on 10/11. Unfortunately, she began having symptoms again yesterday with development of abdominal pain and nausea. Today, her symptoms worsened with increasing abdominal distention causing her to present for evaluation. She
has been unable to pass flatus or stool over the past 24 hours. She has not vomited but feels that she would probably feel better if she was able to.
Medical History
Past Medical History
Past Medical History: Reports Psychiatric (bipolar) and Other (complicated diverticulitis, herpes)
Past Surgical History: Reports Bowel Resection (11/2022 ex lap with sigmoidectomy and sbr x2 d/t adhesions)
Social History
Tobacco: Smoker
Alcohol: Occasional
Living: With Family
Family History
Family History: Not pertinent
Allergies / Home Medications
Allergies reflects when Allergies were last updated in [employer].
Home Medications with original date entered in [employer]
Allergy/Medication List:
Patient Allergies
Allergy/AdvReac Type Severity Reaction Status Date / Time
Sulfa (Sulfonamide Allergy Rash Verified 10/15/23 14:46
Antibiotics)
sulfamethoxazole Allergy Rash/stiff Verified 10/15/23 14:46
[From Bactrim] spine
trimethoprim [From Bactrim] Allergy Rash Verified 10/15/23 14:46
Medication Instructions Recorded Confirmed Type
multivitamin 1 tab PO DAILY Supplement 10/10/23 10/15/23 History
ibuprofen 200 mg tablet (Advil) 400 mg PO Q6HPRN PRN MILD PAIN 10/15/23 10/15/23 History
Review of Systems
-
History Source: Patient and Family
A 12 point ROS was completed and negative except as noted: Yes
Physical Exam
Vital Signs
Vital Signs
Temp Pulse Resp BP Pulse Ox
99.1 F 105 18 130/87 95
10/15/23 14:42 10/15/23 14:42 10/15/23 14:42 10/15/23 14:42 10/15/23 14:42
Physical Exam
General: Well Developed and Well Nourished; No Comfortable
HEENT: Moist mucous membranes
Respiratory: Non Labored Respirations
GI: Soft, Tender (generalized) and Distended
Skin: Warm and Dry
Neuro: Awake, Alert and AO x 3
Psych: Calm
Laboratory Results
-
10/15/23 15:24
10/15/23 15:24
Laboratory Results
Total Bilirubin 0.9 mg/dl (0.2-1.3) 10/15/23 15:24
AST 21 U/L (14-36) 10/15/23 15:24
ALT 15 U/L (0-35) 10/15/23 15:24
Alkaline Phosphatase 64 U/L (38-126) 10/15/23 15:24
Data Reviewed
-
Diagnostic Radiology: Image Personally Visualized and interpreted, Report Reviewed by me, Discussed with Physician, Discussed with Patient and Discussed with Family
Lab Data: Labs Reviewed by me, Discussed with Physician, Discussed with Patient and Discussed with Family
Old Records: Reviewed
Impression/Plan
-
IMPRESSION: 33 yo female PMH of ovarian cysts, bipolar disorder, and complicated diverticulitis s/p ex lap with sigmoidectomy and primary anastomosis and SBR x [address] Romero in 11/2022. Who presented in April and again earlier this week with
SBO presenting again with recurrent symptoms of abdominal pain and nausea with constipation. XR imaging with residual contrast within the colon from prior study as well as some mild bowel dilatation consistent with persistent SBO. CT's reviewed from
prior admissions with transition point near SB anastomosis site.
PLAN:
Admit for further work up
Continue NPO until bowel function returning.
Start IVF with D5LR @80ml
Will place NGT if develops worsening nausea with vomiting
Will give Dulcolax suppositories tonight and prn
SBFT tentatively Wednesday if symptoms persist
Analgesics/antiemetics prn
VTE ppx with Lovenox
[2023-10-15 18:22] VITALS: BP 124/76
[2023-10-15] MEDS: LOVENOX 40 MG SC (19:15)
[2023-10-15] MEDS: TORADOL 10 MG IV (20:41)
[2023-10-15] MEDS: D5LR 1000 IV (20:41)
[2023-10-15] MEDS: BENADRYL 6.25 MG IV (20:59)
[2023-10-15 23:20] VITALS: BP 99/45
[2023-10-16] MEDS: PEPCID 20 MG IV (07:25)
[2023-10-16] MEDS: MIRALAX 17 GRAMS PO (07:29)
[2023-10-16] MEDS: NSS (PRESERVATIVE FREE) 8 ML IV (07:29)
[2023-10-16] MEDS: ZOFRAN 4 MG IV ×2 (07:29→18:38)
[2023-10-16 07:38] VITALS: BP 107/60
[2023-10-16 08:02] LABS: Hematocrit 37.1 % (37.0-47.0); Hemoglobin 13.1 g/dL (12.0-16.0); Mean Corp Hgb Conc. 35.3 g/dL (33.0-37.0); Mean Corpuscular Hgb 32.7 pg (27.0-31.0); Mean Corpuscular Volume 92.5 fL (81.0-99.0); Mean Platelet Volume 10.5 fL (7.4-10.4); Platelet Count 226 10^3/uL (130-400); Red Blood Cell Count 4.01 10^6/uL (4.20-5.40); Red Cell Dist. Width 11.7 % (11.5-14.5); White Blood Cell Count 3.8 10^3/uL (4.8-10.8)
[2023-10-16] MEDS: D5LR 1000 IV ×2 (09:13→19:50)
[2023-10-16] MEDS: DULCOLAX 10 MG RECTAL (09:13)
[2023-10-16 09:35] LABS: Blood Urea Nitrogen 10 mg/dl (7-17); Calcium 9.7 mg/dl (8.4-10.2); Carbon Dioxide 24 mmol/L (22-30); Chloride 103 mmol/L (98-107); Estimated Creatinine Clearance 97 ml/min; Glucose 122 mg/dl (70-99); Potassium 4.2 mmol/L (3.5-5.1); Sodium 137 mmol/L (135-145); eGFR > 60.00
[2023-10-16] MEDS: ATIVAN 0.5 MG PO (09:55)
--- NOTE | 2023-10-16 10:40 | W.PN.GS2 ---
Addendum entered and electronically signed by Trip Hampton MD 10/16/23 15:55:
I saw and examined the patient.
The [facility]'s note was reviewed and I agree with the note.
Comment:
Patient seen with [facility] in AM.
Had some nausea and small-volume emesis overnight. Also with some bowel movements.
Vitals reasonable. WBC 3.8.
Abdomen with mild distention. Mild right lower quadrant sensitivity to palpation.
For now continue clear liquids for comfort.
Anticipate small bowel follow-through on Wednesday.
Original Note:
Today's Communication / Plan
-
Clears and bowel regimen
Assessment / Plan
-
Assessment
33-year-old female with persistent partial small bowel obstruction likely at more proximal small bowel anastomosis.� Does not necessarily appear high-grade but has been unable to advance past liquid diet at home.
Current smoker, declines patch
AFVSS
Labs stable
Plan:
C/W IV fluid hydration
Okay for clear liquids for comfort
Will continue with MiraLAX and give Dulcolax suppository again this am in an effort to help clear contrast opacifying colon over the weekend.
Plan for small bowel follow-through series on Wednesday to evaluate transit time.
Analgesics/antiemetics/anxiolytics prn
Lovenox 40mg SQ for VTE ppx
Subjective Data
-
Date of Service: October 16, 2023
Patient seen and examined at bedside. Nausea overnight with small amount of emesis. Abdominal pain intermittently. Passed 3 hard but small pieces of stool this am.
Objective Data
-
Intake and Output
10/15/23 10/16/23 10/17/23
06:59 06:59 06:59
Intake Total 700 / 700
Balance 700 / 700
Intake:
IV fluids (Total) 700 / 700
Vital Signs
Temp Pulse Resp BP Pulse Ox
98 F 58 16 107/60 96
10/16/23 07:38 10/16/23 07:38 10/16/23 07:38 10/16/23 07:38 10/16/23 07:38
Lab Results
10/16/23 05:22
10/16/23 08:29
Calcium 9.7 mg/dl (8.4-10.2) 10/16/23 08:29
Total Bilirubin 0.9 mg/dl (0.2-1.3) 10/15/23 15:24
AST 21 U/L (14-36) 10/15/23 15:24
ALT 15 U/L (0-35) 10/15/23 15:24
Alkaline Phosphatase 64 U/L (38-126) 10/15/23 15:24
Total Protein 7.7 g/dl (6.3-8.2) 10/15/23 15:24
Albumin 4.5 g/dl (3.5-5.0) 10/15/23 15:24
Physical Exam
-
Gen: NAD
Abd: soft, tender to the RUQ toward midline, non-peritoneal, ND
[2023-10-16 15:51] VITALS: BP 115/76
--- NOTE | 2023-10-16 16:04 | CM ---
Patient seen at bedside. Patient stated that she lives with family in a town home. Patient has no DME and after recent hospitalization was given List of PCP options but has not had a chance to follow up with appointment. patient uses the [facility] in
[place]. Patient indicated that she did not anticipate needing any VN supports at discharge. CM will continue to follow for discharge planning needs.
Plan; home with no needs anticipated
[2023-10-16] MEDS: LOVENOX SC (17:20)
[2023-10-16] MEDS: TORADOL 10 MG IV (18:38)
[2023-10-16] MEDS: DILAUDID 0.5 MG IV (19:44)
[2023-10-16 23:10] VITALS: BP 116/67
[2023-10-17 07:15] VITALS: BP 132/73
[2023-10-17] MEDS: MIRALAX 17 GRAMS PO (07:47)
[2023-10-17] MEDS: PEPCID 20 MG IV (07:48)
[2023-10-17] MEDS: NSS (PRESERVATIVE FREE) 8 ML IV (07:48)
[2023-10-17] MEDS: D5LR 1000 IV (07:51)
--- NOTE | 2023-10-17 11:16 | W.PN.GS2 ---
Addendum entered and electronically signed by Trip Hampton MD 10/17/23 20:25:
I saw and examined the patient.
The performance improvement manager note was reviewed and I agree with the note.
Comment:
Seen in am with [facility].
Some discomfort and nausea overnight. On clears.
Vitals normal.
Abdomen mildly tender.
SBFT tomorrow.
NPO after MN just in case.
Original Note:
Today's Communication / Plan
-
SBFT in AM
Assessment / Plan
-
Assessment
33-year-old female with persistent partial small bowel obstruction likely at more proximal small bowel anastomosis.� Does not necessarily appear high-grade but has been unable to advance past liquid diet at home.
Current smoker, declines patch
AFVSS
Intermittent nausea/pain. Was able to pass some BM's yesterday.
Plan:
C/W IV fluid hydration
Continue on clear liquids
Plan for small bowel follow-through series on Wednesday to evaluate transit time.
Analgesics/antiemetics/anxiolytics prn
Patient declining SCD's and Lovenox for vte ppx. Ambulating room/halls.
Subjective Data
-
Date of Service: October 17, 2023
Patient seen and examined at bedside with Dr. Hampton. Nausea and pain last night, currently without nausea. BM x3 yesterday after suppository. Some relief in abdominal distention after BM's. Still with intermittent discomfort to the upper abdomen
just right of midline.
Objective Data
-
Intake and Output
10/16/23 10/17/23 10/18/23
06:59 06:59 06:59
Intake Total 700 / 700 3600 / 3600
Balance 700 / 700 3600 / 3600
Intake:
Oral fluids 1680 / 1680
IV fluids (Total) 700 / 700 1920 / 1920
Other:
Number of approximated MODERATE 1
amounts of urine
Vital Signs
Temp Pulse Resp BP Pulse Ox
98.3 F 69 14 132/73 98
10/17/23 07:15 10/17/23 07:15 10/17/23 07:15 10/17/23 07:15 10/17/23 07:15
Lab Results
10/16/23 05:22
10/16/23 08:29
Calcium 9.7 mg/dl (8.4-10.2) 10/16/23 08:29
Total Bilirubin 0.9 mg/dl (0.2-1.3) 10/15/23 15:24
AST 21 U/L (14-36) 10/15/23 15:24
ALT 15 U/L (0-35) 10/15/23 15:24
Alkaline Phosphatase 64 U/L (38-126) 10/15/23 15:24
Total Protein 7.7 g/dl (6.3-8.2) 10/15/23 15:24
Albumin 4.5 g/dl (3.5-5.0) 10/15/23 15:24
Physical Exam
-
Gen: NAD
Abd: soft, mildly tender to the RUQ toward midline, non-peritoneal, ND
[2023-10-17] MEDS: ZOFRAN 4 MG IV (13:31)
[2023-10-17] MEDS: DILAUDID 0.5 MG IV (13:31)
[2023-10-17] MEDS: TORADOL 10 MG IV ×2 (14:29→21:06)
[2023-10-17 15:10] VITALS: BP 124/74
[2023-10-17] MEDS: LOVENOX 40 MG SC (17:13)
[2023-10-17] MEDS: MYLICON 80 MG PO (19:40)
[2023-10-17 22:29] VITALS: BP 125/66
[2023-10-18] MEDS: ATIVAN 0.5 MG PO (00:10)
[2023-10-18 07:10] VITALS: BP 110/73
--- NOTE | 2023-10-18 08:42 | W.PN.GS2 ---
Today's Communication / Plan
-
SBFT study
Assessment / Plan
-
Assessment
33-year-old female with persistent partial small bowel obstruction likely at more proximal small bowel anastomosis.� Does not necessarily appear high-grade but has been unable to advance past liquid diet at home.
Current smoker, declines patch
AFVSS
Intermittent nausea/pain. Passing some liquid stools
Plan:
C/W IV fluid hydration
Continue on clear liquids
Plan for small bowel follow-through series today to evaluate transit time.
Analgesics/antiemetics/anxiolytics prn
Patient declining SCD's and Lovenox for vte ppx. Ambulating room/halls.
Subjective Data
-
Date of Service: October 18, 2023
Patient seen and examined at bedside with Dr. Grove. Some nausea with liquids. Intermittent loose stools. Right sided pain intermittently.
Objective Data
-
Intake and Output
10/17/23 10/18/23 10/19/23
06:59 06:59 06:59
Intake Total 3600 / 3600 2240 / 2240
Balance 3600 / 3600 2240 / 2240
Intake:
Oral fluids 1680 / 1680 1120 / 1120
IV fluids (Total) 1920 / 1920 1120 / 1120
Other:
Number of approximated SMALL 2
amounts of urine
Number of approximated MODERATE 1 3
amounts of urine
Number of unmeasured liquid
stools
Rectum 3
Vital Signs
Temp Pulse Resp BP Pulse Ox
98.3 F 74 18 110/73 98
10/18/23 07:10 10/18/23 07:10 10/18/23 07:10 10/18/23 07:10 10/18/23 07:10
Lab Results
10/16/23 05:22
10/16/23 08:29
Calcium 9.7 mg/dl (8.4-10.2) 10/16/23 08:29
Total Bilirubin 0.9 mg/dl (0.2-1.3) 10/15/23 15:24
AST 21 U/L (14-36) 10/15/23 15:24
ALT 15 U/L (0-35) 10/15/23 15:24
Alkaline Phosphatase 64 U/L (38-126) 10/15/23 15:24
Total Protein 7.7 g/dl (6.3-8.2) 10/15/23 15:24
Albumin 4.5 g/dl (3.5-5.0) 10/15/23 15:24
Physical Exam
-
Gen: NAD
Abd: soft, NT, non-peritoneal, ND
[2023-10-18] MEDS: PEPCID 20 MG IV (09:15)
[2023-10-18] MEDS: NSS (PRESERVATIVE FREE) 8 ML IV (09:15)
--- NOTE | 2023-10-18 15:25 | CM ---
SBO. Clear liquids. Discharge plan of care: Anticipate no needs. Will continue to follow should the needs change.
--- NOTE | 2023-10-18 15:31 | W.DCSUMMARY ---
Discharge Summary
Discharge Data
Date of Admission: 10/15/23
Date of Discharge: 10/18/23
-
Pending Results: No
Hospital Course
Ms Forbes is a 33 yo female with history of exploratory laparotomy, sigmoidectomy, small bowel resection x 2 due to diverticulitis complicated by intra-abdominal abscess with resultant small bowel obstruction in November of 2022.� Initial postoperative
recovery unremarkable.� In April she had a low-grade partial small bowel obstruction which promptly resolved with overnight hydration and bowel rest.� She had been doing well since then until this past week when she developed obstructive
symptoms again which was confirmed by CT imaging likely at more proximal small bowel anastomosis.� Follow-up abdominal x-ray showed contrast progression into the colon and her symptoms improved to the point that she was requesting discharge and
there was enough signs of GI recovery to progress with diet at home.� Unfortunately, since going home she had difficulty advancing past liquid diet with return of abdominal pain, cramps and bloating with only limited bowel movements causing her to
return. She was admitted and started on bowel regimen and clear liquids only with improvement in symptoms. Small bowel follow through was preformed without abnormality noted. She was able to tolerate full liquids after testing and was discharged
with instructions to continue slow diet advancement at home with full liquids initially and progression to low fiber diet as able. Outpatient follow up planned in the coming weeks to evaluate progress.
Discharge Plan
-
Patient Disposition: Home (Routine Discharge)
Discharge Diagnosis/Procedures: abdominal pain/nausea
Condition: Good
Diet: As tolerated, Low Fiber and Supplements
Additional Diets: Eat soft puddings, soups, yogurts, protein shakes etc for the next few days. Once you are able to eat these kinds of food without pain or nausea slowly add in low fiber foods as tolerated (handout for low fiber diet included)
Driving Restrictions: As prior to admission
Instructions: Low Fiber Diet
Referrals:
Ciaran Hidalgo MD [Active] - in two to four weeks
Prescriptions:
New
ondansetron HCl 4 mg tablet
4 mg PO Q8H PRN (Reason: nausea and vomiting) Qty: 20 0RF
polyethylene glycol 3350 [polyethylene glycol 3350] 17 gram powder in packet
17 g PO DAILYPRN PRN (Reason: constipation) Qty: 1 0RF
Continued
multivitamin Tablet
1 tab PO DAILY
ibuprofen [Advil] 200 mg Tablet
400 mg PO Q6HPRN PRN (Reason: MILD PAIN)
Discharge Orders:
Discharge Patient (As Directed); Ordered 10/18/23
Ordered By: Trisha Booth
[2023-10-18 15:57] VITALS: BP 125/85
--- NOTE | 2023-10-18 16:41 | CM ---
Patient has been discharged to home with no additional skilled services. Patient has arranged for transport home.
== END 2023-10-18 15:50 | disposition home or self-care (01) | DRG 390 ==
LOC: 2 SOUTH 17:45
PROVIDERS: Registered Nurse; ADMITTING PHYSICIAN Surgery; EMERGENCY PHYSICIAN Emergency Medicine
DX: K56.600 Partial intestinal obstruction, unspecified as to cause (principal); F17.200 Nicotine dependence, unspecified, uncomplicated; Z90.49 Acquired absence of other specified parts of digestive tract
CPT/HCPCS: 74022; 74250; 80048; 80053; 84703; 85025; 85027; 99284

== ENCOUNTER 2024-10-06 12:33 | Emergency (ER) | payer MEDICARE, SELFPAY ==
[2024-10-06 12:35] VITALS: BP 157/109
--- NOTE | 2024-10-06 13:10 | ED.GENMED ---
History of Present Illness
General
Chief Complaint: Abdominal Symptoms
Source: patient
Exam Limitations: none
Time Seen by Provider: 10/06/24 12:58
History of Present Illness
History of Present Illness:
See MDM
Past History
Past History
ED Past Medical History: Psychiatric (Depression, bipolar disorder, panic disorder), Other (Diverticulitis) and Other (Genital herpes)
ED Past Surgical History: Bowel resection
Social History
Tobacco: Smoker
Alcohol: Occasional
Drug: None
Personal: Single
Living: with family
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
Family History
Family History: Diabetes and Other (Breast cancer)
Phy Exam
Physical Exam
Physical Exam:
See MDM
Course
Orders/Labs/Results
Orders:
Orders
10/06/24 13:09
CT Abd/pel W Iv And Oral Contr Urgent
Comment: prior sigmoid resection
Reason For Exam: general abd pain, constipated
0.9% Sodium Chloride 1000 ml [Nss] 1,000 ml IV BOLUS
Iohexol [Omnipaque] See Protocol PO NOW STA
Ketorolac [Toradol] 30 mg IV NOW STA
Lorazepam [Ativan] 0.5 mg IV NOW STA
Test Result ONCE
10/06/24 13:35
Complete Blood Count/With Diff Urgent
Comprehensive Metabolic Panel Urgent
10/06/24 13:36
HCG, Urine Qualitative Screen Urgent
Date Specimen was Collected: 10/06/24
Time Specimen was Collected: 13:35
Urinalysis Reflex To Culture Urgent
Date Specimen was Collected: 10/06/24
Time Specimen was Collected: 13:35
Urine Microscopic Reflex Cult Urgent
Abnormal Lab Results
10/06/24 10/06/24
13:35 13:36
WBC 3.6 L 10^3/uL
(4.8-10.8)
RBC 4.09 L 10^6/uL
(4.20-5.40)
MCH 33.3 H pg
(27.0-31.0)
Absolute Lymphs (auto) 1.0 L 10^3/uL
(1.2-3.4)
Monocytes % 11.8 H %
(1.7-9.3)
Ur Occult Blood Reflex 2+ A
(Negative)
Urine RBC 3-6 A /HPF
(0-2)
Urine Bacteria (Reflex) Few A
(Negative)
10/06/24 13:35
10/06/24 13:35
Vital Signs
Initial and Last Documented VS:
Initial Vital Signs
Temp Pulse Resp BP Pulse Ox
98.1 F 139 20 157/109 99
10/06/24 12:35 10/06/24 12:35 10/06/24 12:35 10/06/24 12:35 10/06/24 12:35
Last Documented Vital Signs
Temp Pulse Resp BP Pulse Ox
98.1 F 139 20 157/109 99
10/06/24 12:35 10/06/24 12:35 10/06/24 12:35 10/06/24 12:35 10/06/24 12:35
MDM/Problems Addressed
Differential Diagnosis Includes:
HPI and MDM Narrative:
34-year-old female presenting for evaluation of generalized abdominal pain. This has been ongoing for the past day or so. This is associated with a tightness sensation in her abdomen. Patient does recognize that she is somewhat complicated given
her prior abdominal surgeries. She does indicate that she was trying not to come to the hospital but called her surgical team and was sent in for further evaluation. She is unsure if this is merely constipation. She is passing gas but is belching
more than flatulence. Her last bowel movement was 2 days ago. On exam, she is well-appearing nontoxic. Her abdomen is otherwise benign. She is mildly dry.
She does indicate that she feels something in her rectum and is unsure if this is a hemorrhoid or rectal prolapse. The medical research tech Mikki did commercial credit lead my external exam. She does have a small external hemorrhoid that is not thrombosed. I did discuss
that that may or may not be her issue or there could be intermittent prolapse internal hemorrhoid or potentially still related to intermittent rectal prolapse.
Given her abdominal surgical history, we discussed risk versus benefit of CT scan and patient acknowledges the importance of CT scan
Physical exam
General: Well appearing and non-toxic
HEENT: protecting airway. Mildly dry mucous membrane
Neck: appears supple
CV: No evidence of cyanosis
Resp: No accessory muscle use
Abd: Non-distended. Soft. No point tenderness noted
Rectal: Small external hemorrhoid that is not thrombosed
Extremities: No deformities
Neuro: alert
Psych: Normal affect
Skin: Intact
Problems Addressed including Acute and Chronic Conditions affecting care:
1. Abdominal pain
Acuity: acute
Prognosis: stable
Details: Potentially setting of constipation. Given her prior history of small bowel obstructions and intra-abdominal abscess, will obtain CT scan
Updates
2:45 PM on reassessment, patient remains well-appearing nontoxic. We discussed negative blood work and mild hematuria on urinalysis
CT negative for acute pathology. Patient feels comfortable going home. Discussed follow-up with GI
Differential Diagnosis (but not limited to): Constipation, diverticulitis, partial small bowel obstruction
Testing considered: Abdominal x-ray
Drug therapy (if applicable): OTC meds, please see d/c instruction regarding Rx drugs
Amount and/or Complexity of Data Reviewed
Clinical info obtained from: Patient
External data reviewed: N/A
Labs I independently reviewed (but not limited to): Electrolytes LFTs normal. Mild hematuria
Radiology: The CT scan was personally and independently reviewed. In addition, official CT report reviewed.
Pulse Ox: not hypoxic
EKG independently reviewed: N/A
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
Critical Care: N/A
Risk of Complication:
Social Determinants of health: Good social support
Discussed with other providers: N/A
Escalation of Care includes Admit/Obs: After being observed in the Emergency Department, pt stable for discharge.
Occasional wrong word or 'sound a like' substitutions may have occurred due to the inherent limitations of voice recognition software. Read the chart carefully and recognize, using context, where substitutions have occurred.
*Critical Care Note
Total Time (30-74mins, 75-104mins- exclusive of procedures): Not Applicable
ED Attending Note
-
Portions of this chart may have been created with voice recognition software.� Occasional wrong word or��sound alike� substitutions may have occurred due to the inherent limitations of voice recognition software.
Discharge Plan
Departure
Patient Disposition: Home (Routine Discharge)
Date of Disposition: 10/06/24
Time of Disposition: 16:32
Patient with high blood pressure during this ER visit?: No
Discharge Problem:
Abdominal pain
Instructions: Abdominal Pain
Prescriptions:
No Action
multivitamin Tablet
1 tab PO DAILY
ibuprofen [Advil] 200 mg Tablet
400 mg PO Q6HPRN PRN (Reason: MILD PAIN)
ondansetron HCl 4 mg tablet
4 mg PO Q8H PRN (Reason: nausea and vomiting) Qty: 20 0RF
polyethylene glycol 3350 [polyethylene glycol 3350] 17 gram powder in packet
17 g PO DAILYPRN PRN (Reason: constipation) Qty: 1 0RF
Referrals:
Kalina Salinas MD [Active] -
NONE,* [Family Provider] -
Activity Restrictions/Additional Instructions:
Please return for any worsening symptoms.
You may return at any time if you have further concerns.
Please follow up with your doctor at the first available appointment, preferably this week.
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
Thank you for choosing [facility].
Interventions
Interventions:
*Risk Screen - Suicide Last Done: 10/06/24 14:05
*General Assessment Last Done: 10/06/24 12:35
*Neglect/Abuse Screening Last Done: 10/06/24 14:05
*ED- Fall Risk Assessment Last Done: 10/06/24 14:05
*ED COVID-19 Vaccine History Last Done: 10/06/24 14:05
VT-Xdbkld-Dlythrbxps Assessment Last Done: 10/06/24 14:05
Discharge Date and Time
Print Language: RUSSIAN
[2024-10-06 13:26] VITALS: BMI 19.7
[2024-10-06] MEDS: OMNIPAQUE 50 ML PO (13:37)
[2024-10-06] MEDS: NSS 1000 IV (13:37)
[2024-10-06] MEDS: TORADOL 30 MG IV (13:38)
[2024-10-06] MEDS: ATIVAN 0.5 MG IV (13:38)
[2024-10-06 13:52] LABS: % Basophils 0.6 % (0-2); % Eosinophils 1.1 % (0-6); % Lymphocytes 27.3 % (20.5-51.1); % Monocytes 11.8 % (1.7-9.3); % Neutrophils 59.2 % (42.2-75.2); Absolute Monocytes 0.4 10^3/uL (0.1-0.6); Absolute Neutrophils 2.1 10^3/uL (1.4-6.5); Hemoglobin 13.6 g/dL (12.0-16.0); Mean Corp Hgb Conc. 34.9 g/dL (33.0-37.0); Mean Corpuscular Hgb 33.3 pg (27.0-31.0); Mean Corpuscular Volume 95.4 fL (81.0-99.0); Nucleated Red Blood Cells % 0 %; Platelet Count 201 10^3/uL (130-400); Red Blood Cell Count 4.09 10^6/uL (4.20-5.40); Red Cell Dist. Width 11.6 % (11.5-14.5); White Blood Cell Count 3.6 10^3/uL (4.8-10.8)
[2024-10-06 13:54] LABS: Urine Albumin Negative (Neg - Trace); Urine Bilirubin Negative (Negative); Urine Character Clear (Clear); Urine Color Yellow; Urine Glucose Negative (Negative); Urine Ketone Negative (Negative); Urine Leukocyte Negative (Negative); Urine Nitrite Negative (Negative); Urine Occult Blood 2+ (Negative); Urine Urobilinogen Negative (Neg - 1+)
[2024-10-06 13:55] LABS: HCG, Urine Qualitative Screen Negative
[2024-10-06 14:08] LABS: Urine Squamous Cell >30 /LPF (Few)
[2024-10-06 14:08] LABS: ALT (SGPT) 22 U/L (0-35); AST (SGOT) 23 U/L (14-36); Albumin 4.6 g/dl (3.5-5.0); Alkaline Phosphatase 77 U/L (38-126); Blood Urea Nitrogen 10 mg/dl (7-17); Carbon Dioxide 26 mmol/L (22-30); Chloride 104 mmol/L (98-107); Estimated Creatinine Clearance 82 ml/min; Glucose 83 mg/dl (70-99); Potassium 4.1 mmol/L (3.5-5.1); Sodium 137 mmol/L (135-145); Total Bilirubin 0.7 mg/dl (0.2-1.3); Total Protein 7.5 g/dl (6.3-8.2); eGFR > 60.00
[2024-10-06 14:11] LABS: Urine Amorphous Seen; Urine Bacteria Few (Negative); Urine White Cell 0-2 /HPF (0-5)
[2024-10-06 16:42] VITALS: BP 131/77
== END 2024-10-06 16:48 | disposition home or self-care (01) ==
LOC: EMR 12:33
PROVIDERS: EMERGENCY PHYSICIAN Student in an Organized Health Care Education/Training Program
DX: R10.9 Unspecified abdominal pain (principal); F17.200 Nicotine dependence, unspecified, uncomplicated
CPT/HCPCS: 99285; 96374; 96375; 96361; 74177; 80053; 81003; 81015; 81025; 85025; Q9967